=== PATIENT | male | born 1955 | race Caucasian/White ===

== ENCOUNTER 2019-01-26 10:09 | Inpatient (IN) | payer OTHER ==
[~2019-01-26] VITALS: Ht 185.4 cm; Wt 123.4 kg
--- NOTE | ~2019-01-26 | HC ---
[facility] [place] [address] CONSULTATION Name: LOU LEO Room #: 355-P ADM IN M.R.#: [id number] Admission: 01/26/19 ������������������ Attend Phys: Dave Douglass MD Discharge: ������������������ Date of : 55 Report #: [id number] THIS REPORT FOR: //name// CC: Dave Harden TYPE OF REPORT: Neurology consultation. HISTORY OF PRESENT ILLNESS: The majority of the history is obtained from the patient's who was an excellent historian and the records from [facility]. The patient was admitted for a recent fall. He seemed to get a wild-eyed looked and then slumped over. He came to the Emergency Room. The patient has a complicated and extensive past medical history. The records, particularly, the summary from the admission date of 12/11/2018 go into great detail about the patient's past medical history. The patient has been walking with a cane for over 10 years. In late 2015, he began losing balance. He does have a known history of peripheral neuropathy. At that time, he could only walk 20 or 30 feet. The patient's states that she noticed in August, he seemed to have more difficulty with word finding. On 11/19/2018, the patient was admitted to [facility] where he had a left middle cerebral artery stroke. His told me that he was diagnosed with vasculitis but reviewing the records, he was only treated with high dose steroids and a prednisone taper as a precautionary measure. The patient also had a brain biopsy because of his prior history of lymphoma diagnosed in 2017. The patient was discharged from , his began to notice these episodes where he seems as though he is not there. On 12/11/2018, he was again taken back to where the left middle cerebral artery stent was placed. The patient refused rehab and went home on 12/29/2018. Since then, the patient has fallen or collapsed at least 4 times. His had tried to get him placed at [facility] [place] but there were no rooms available. They are now trying to get him placed at [facility]. The patient's states that he just cannot care for him at home. PAST MEDICAL HISTORY: B-cell lymphoma, bipolar disorder, deep vein thrombosis, bilateral aneurysms of the popliteal fossa, degenerative joint disease, diabetes mellitus, gastroesophageal reflux, hyperlipidemia, hypertension, renal failure, stroke and diabetic neuropathy. PAST SURGICAL HISTORY: Hernia repair, popliteal artery vein graft, bilateral popliteal artery aneurysm repair, left toe amputation, brain biopsy and left middle artery stent. MEDICATIONS: Amitriptyline 50 mg at bedtime, aspirin 325 mg daily, atorvastatin [address] [address] CONSULTATION Name: ALIYAHLOU KAUR Room #: 355-P [facility] IN M.R.#: [id number] Admission: 01/26/19 ������������������ Attend Phys: Dave Douglass MD Discharge: ������������������ Date of : 55 Report #: [id number] 80 mg daily, Plavix 75 mg daily, duloxetine 60 mg b.i.d., Flomax 0.4 mg daily, gabapentin 600 mg t.i.d., metoprolol 25 mg daily, pantoprazole 40 mg daily, ropinirole 0.5 mg at dinner and Xanax 0.25 mg t.i.d. p.r.n. anxiety. PHYSICAL EXAMINATION: VITAL SIGNS: Temperature 36.3, pulse rate 80, respiratory rate 16, blood pressure 111/84 and bedside pulse oximetry 94% on room air. NEUROLOGICAL: The patient is able to carry on a conversation, but has limited speech and also has dysarthria. It is difficult for him to make himself understood. He has symmetrical movement of all four extremities. Reflexes were absent. Plantar responses were mute. I did not check for dysmetria and could not test for gait. LABORATORY DATA: Hematology: White blood cell count 5.6; hemoglobin 12.1; hematocrit 36.5 and platelet count 175,000. Urinalysis 2+ protein, trace ketones, 1+ blood, nitrite positive and 2+ leukocyte esterase positive. Chemistry: Sodium 141, potassium 3.6, chloride 106, carbon dioxide 23, BUN 17, creatinine 1.8, GFR is 38 and glucose 198. B12 of 469. RADIOLOGICAL DATA: CT scan of the head demonstrates no acute intracranial process, left posterior parietal craniotomy is seen, encephalomalacia in the left MCA distribution is seen. Small stent within the region of the left MCA. IMPRESSION AND PLAN: This patient has an old left middle cerebral artery stroke. Reviewing his records from , the patient did not have vasculitis, although he was treated for it to see if this might improve his symptoms, which it did not. The patient also has significant vascular disease. This includes the intracranial circulation. I have ordered an MRI head without contrast to look for an acute stroke. The patient also probably has a significant diabetic peripheral neuropathy. Something that might be considered in the future would be an EMG as an outpatient to make sure there is not a component of demyelinating disease. For the staring off episodes, an electroencephalogram has been ordered. Dr. Valiente will be following the patient as of Monday. ��������������������������������������������� ���������������������������������������� By: ��������������������������������������������� 1127 0534 Suzanne Welch DO /nt
--- NOTE | ~2019-01-26 | EEG ---
[facility] [place] [address] ELECTROENCEPHALOGRAM Name: LOU LEO Room #: 355-P ADM IN M.R.#: [id number] ������������������ Admission: 01/26/19 ������������������ Attend Phys: Dave Douglass MD Discharge: ������������������ Date of : 55 Report #: [id number] ����������������������������������������������������������������� [id number] THIS REPORT FOR: //name// CC: Dave Douglass [facility] DATE OF SERVICE: 01/27/2019 This patient is being evaluated for the possibility of TIA. Background activity in this patient's EEG is about 8-9 Hz and 30 microvolt. The patient became drowsy that was associated with bilateral slowing. Some slowing is present on the left side. That may be because of a prior CVA. Photic stimulation is unremarkable. Throughout the record, no active epileptiform activity was noticed. IMPRESSION: This patient's EEG is intermixed with theta range slowing on both sides. That is a nonspecific abnormality, which can occur with dementia, encephalopathy, effect of psychotropic medication. No active epileptiform activity was noticed during this record. ���������������������������������������� ���������������������������������������� By: ��������������������������������������������� 1638 54 Jung Valiente MD /nt
[2019-01-26 10:10] VITALS: BP 140/93
[2019-01-26 10:34] LABS: ABSOLUTE NEUTROPHILS 3.7 thou/uL (1.4-8.2); BASOPHILS 1.4 % (0.0-2.0); EOSINOPHILS 1.8 % (0.0-3.0); HEMATOCRIT 37.7 % (42.0-52.0); HEMOGLOBIN 12.5 gm/dL (14.0-18.0); LYMPHOCYTES 27.2 % (24.0-44.0); MCH 28.6 pg (26.0-34.0); MCHC 33.2 g/dL (28.0-37.0); MCV 86.3 fL (80.0-100.0); MONOCYTES 8.9 % (1.0-8.0); PLATELET COUNT 178 thou/uL (150-400); POLYS 60.7 % (36.0-66.0); RBC 4.37 mil/uL (4.50-6.00); RDW 17.3 % (10.5-14.5); WBC 6.1 thou/uL (4.0-11.0)
[2019-01-26 10:41] LABS: ANION GAP 12 mmol/L (7-16); BUN 16 mg/dL (7-18); CALCIUM 9.1 mg/dL (8.5-10.1); CHLORIDE 103 mmol/L (98-107); CO2 25 mmol/L (21-32); CREATININE 1.4 mg/dL (0.7-1.3); GLUCOSE 240 mg/dL (74-106); POTASSIUM 3.6 mmol/L (3.5-5.1); SODIUM 140 mmol/L (136-145)
[2019-01-26 10:47] LABS: APTT 28.9 Seconds (24.5-32.8)
[2019-01-26 10:51] LABS: ALBUMIN 3.4 g/dL (3.4-5.0); DIRECT BILIRUBIN 0.2 mg/dL (<0.1-0.3); SGOT 18 U/L (15-37); SGPT 32 U/L (30-65); TOTAL BILIRUBIN 0.7 mg/dL (<0.1-1.0); TROPONIN-I <0.06 ng/mL (<0.06)
[2019-01-26 11:41] LABS: URINE BILIRUBIN NEGATIVE (Negative); URINE BLOOD 1+ (Negative); URINE COLOR YELLOW; URINE GLUCOSE-RANDOM* TRACE (Negative); URINE KETONES TRACE (Negative); URINE PROTEIN (DIPSTICK) 2+ (Negative); URINE SPECIFIC GRAVITY >= 1.030 (1.005-1.035); URINE UROBILINOGEN 0.2 E.U./dl (0.2-1.0)
[2019-01-26 11:44] LABS: URINE CLARITY HAZY; URINE LEUKOCYTES-REFLEX 2+ (Negative); URINE NITRITE-REFLEX POSITIVE (Negative)
[2019-01-26 11:48] LABS: BACTERIA-REFLEX >30 Many /HPF (None Seen); CASTS None Seen /LPF (None Seen); SQUAMOUS None Seen /LPF (0-3); URINE WBC-REFLEX >25 Many /HPF (0-5)
[2019-01-26 11:49] LABS: CRYSTALS None Seen /LPF (None Seen)
[2019-01-26 13:20] VITALS: BP 145/91
[2019-01-26 13:40] VITALS: BP 157/97
[2019-01-26 13:55] VITALS: BP 159/119
[2019-01-26 14:07] LABS: TSH 3.222 uIU/mL (0.358-3.740)
--- NOTE | 2019-01-26 15:48 | EKG ---
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 : 1955 Requested By: Nanci Holt Order Number: [id number] MD: Saulo Wilson Measurements Intervals [place] Rate: 94 P: 14 MD: 184 QRS: 2 QRSD: 85 T: 198 QT: 326 QTc: 408 Interpretive Statements Sinus rhythm Nonspecific T abnormalities, lateral leads Compared to ECG 07/09/2003 14:50:25 T-wave abnormality now present Electronically Signed On 01-26-2019 15:47:45 CDT by Saulo Wilson [email or web address] ��������������������������������������������� <ELECTRONICALLY SIGNED> ���������������������������������������� By: Saulo Wilson MD ��������������������������������������������� 01/26/19 1547 1022 1022 Saulo Wilson MD /[facility]
[2019-01-26 15:53] VITALS: BP 179/99
[2019-01-26] MEDS ORDERED: OXYCODONE HCL10 MG PO (15:55)
[2019-01-26] MEDS ORDERED: PROTONIX40 M1 PO (15:55)
[2019-01-26] MEDS ORDERED: FLOMAX0.4 MG PO (15:56)
[2019-01-26] MEDS ORDERED: REQUIP0.5 MG PO (15:56)
[2019-01-26] MEDS ORDERED: B COMPLEX1 EACH PO (15:56)
[2019-01-26] MEDS ORDERED: ASPIRIN325 PO (15:57)
[2019-01-26] MEDS ORDERED: LIPITOR80 MG PO (15:57)
[2019-01-26] MEDS ORDERED: AMITRIPTYLINE H25 M2 PO (15:57)
[2019-01-26] MEDS ORDERED: CALCIUM MAGNES1 EACH PO (15:58)
[2019-01-26] MEDS ORDERED: PLAVIX 75 MG TA75 M1 PO (15:58)
[2019-01-26] MEDS ORDERED: CYMBALTA60 MG PO (15:58)
[2019-01-26] MEDS ORDERED: NOVOLOG100 UNIT/1 SUBQ (15:59)
[2019-01-26] MEDS ORDERED: NEURONTIN600 MG PO (15:59)
[2019-01-26] MEDS ORDERED: TOPROL XL25 MG PO (16:00)
[2019-01-26] MEDS ORDERED: LEVEMIR SUBQ (16:00)
[2019-01-26] MEDS ORDERED: MELATONIN3 MG PO (16:00)
[2019-01-26] MEDS ORDERED: XANAX 0.25 MG0.25 MG PO (16:15)
--- NOTE | 2019-01-26 18:24 | NUR ---
Assumed care of Pt on arrival to unit at approx 1400. pt aphasic, in no acute distress. accompanied by and son. speech therapy rec honey thickened fluids. iv abx infusing per order. pt expressing frustration about being in hospital again - says he has been in hospital a lot this year. sinus on telemetry. hypertensive - physician notified - resumed home metoprolol. low dose anxiety meds ordered. good appetite. pt able to turn self in bed. bruising throughout from multiple recent falls - no breakdown noted. pt progressing toward poc goals.
[2019-01-26 19:45] VITALS: BP 105/65
--- NOTE | 2019-01-26 22:50 | NUR ---
PT IS HAVING PAIN IN HIS LEFT HIP TONIGHT. HE DID FALL AT HOME PRIOR TO COMING TO THE HOSPITAL. HE IS MAONING AND GRIMACING AND ON THE CALL RAZO TRYING TO EXPLAIN HIS DISCOMFORT. HE DENIES NEED FOR THE URINAL OR OTHER DISCOMFORTS. HE IS POINTING TO HIS HIP AND IS FUSSY.
[2019-01-27] VITALS: BP 138/73
[2019-01-27 04:00] VITALS: BP 144/86
[2019-01-27 04:24] LABS: HEMATOCRIT 36.5 % (42.0-52.0); HEMOGLOBIN 12.1 gm/dL (14.0-18.0); MCH 28.6 pg (26.0-34.0); MCV 86.6 fL (80.0-100.0); RBC 4.22 mil/uL (4.50-6.00); RDW 17.7 % (10.5-14.5); WBC 5.6 thou/uL (4.0-11.0)
[2019-01-27 04:53] LABS: CALCIUM 8.5 mg/dL (8.5-10.1); CREATININE 1.8 mg/dL (0.7-1.3); POTASSIUM 3.6 mmol/L (3.5-5.1); TOTAL BILIRUBIN 0.6 mg/dL (<0.1-1.0); TOTAL PROTEIN 6.3 g/dL (6.4-8.2)
--- NOTE | 2019-01-27 06:09 | NUR ---
HAS HAD DIFFICULTY WITH RETENTION THIS SHIFT. 350 ML STRAIGHT CATHETER REMOVED FROM BLADDER. PT TOLERATED WITHOUT COMPLAINT HE IS MORE RELAXED NOW.
[2019-01-27 07:41] VITALS: BP 111/84
[2019-01-27 11:20] VITALS: BP 108/57
[2019-01-27 16:39] VITALS: BP 143/94
[2019-01-27 19:55] VITALS: BP 141/83
--- NOTE | 2019-01-27 20:06 | NUR ---
FALL PREC IN PLACE... REPORTS PATIENT SLUMPED TO GROUND YESTERDAY AT HOME..WILL AWAIT PT TO HELP GET PATIENT OUT OF BED TOMORROW.
--- NOTE | 2019-01-28 02:09 | NUR ---
PATIENT IS ALERT AND ORIENTED. PATIENT HAS EXPRESSIVE APHASIA. PATIENT IS 2 MAX ASSIST TO BSC. PATIENT IS ON ROOM AIR. PATIENT DISLIKES THICKENED FLUIDS SO PATIENT IS NOT DRINKING MUCH. NURSE AND STAFF ENCOURAGE ORAL INTAKE. PATIENTS NIH HAS BEEN 3 DUE TO CHRONIC APHASIC CHANGES. PATIENT HAD A BATH PER DAY SHIFT. PATIENT IS PENDING MRI TODAY. PATIENT IS PENDING PLACEMENT. SPOUSE IS UNABLE TO CARE FOR PATIENT AT HOME (PER SPOUSE). PATIENT IS RESTING COMFORTABLY. PATIENT HAS NOT VOIDED THIS SHIFT. SCADDED 175 IN BLADDER WCM. PATIENT IS NOT PROGRESSING TO GOALS
[2019-01-28 04:09] VITALS: BP 1142/79
[2019-01-28 07:15] VITALS: BP 143/88
[2019-01-28 11:02] VITALS: BP 171/98
--- NOTE | 2019-01-28 11:06 | NUR ---
[employer] sent initial SNF referral to [facility] fax [phone]. Not sure of dc timeframe yet, possibly 1-2 days. Will need insurance authorization, didn't request auth with facility yet. DP will call to make certain JKV received faxed referral.
--- NOTE | 2019-01-28 12:15 | 2DMMODE ---
[facility] [place] [employer] [place] [address] 2 D/M-MODE ECHOCARDIOGRAM Name: ALIYAHVINCENTLOU FRANCESCO Room #: 355-P ADM IN M.R.#: [id number] ������������� Admission: 01/26/19 ������������� Attend Phys: Gavin Tran Discharge: ��� ������������� ��� Date of : 55 Date of Service: 01/28/19 1214 �� Report #: [id number] �������� ��������������������������������������������[id number] THIS REPORT FOR: //name// APPROVED REPORT Study performed: 01/28/2019 10:12:35 EXAM: Comprehensive 2D, Doppler, and color-flow Echocardiogram Patient Location: Bedside Room #: 355 Status: routine BSA: 2.43 HR: 72 bpm BP: 143/88 mmHg Rhythm: NSR Other Information Study Quality: Adequate Indications TIA, Afib. hx: COPD, AFIB, HTN Echo Enhancing Agent Indication: Rule out Shunt Agent(s) / Amount(s) Used: Agitated Saline 6 cc 2D Dimensions RVDd: 43.05 mm IVSd: 12.99 (7-11mm) LVOT Diam: 24.27 (18-24mm) LVDd: 46.40 mm PWd: 12.00 (7-11mm) Ascending Ao: 42.17 (22-36mm) LVDs: 36.01 (25-40mm) Aortic Root: 40.09 mm Volumes Left Atrial Volume (Systole) Single Plane 4CH: 25.90 mL Single Plane 2CH: 47.09 mL LA ESV Index: 16.00 mL/m2 Aortic Valve AoV Peak Greg.: 0.91 m/s AO Peak Gr.: 3.33 mmHg LVOT Max P.87 mmHg LVOT Max V: 0.85 m/s RITU Vmax: 4.29 cm2 [facility] [address] [place] [address] 2 D/M-MODE ECHOCARDIOGRAM Name: ALIYAHVINCENTLOU FRANCESCO Room #: 355-[facility] IN ..#: [id number] ������������� Admission: 01/26/19 ������������� Attend Phys: Gavin Tran Discharge: ��� ������������� ��� Date of : 55 Date of Service: 01/28/19 1214 �� Report #: [id number] �������� ��������������������������������������������[id number] Mitral Valve E/A Ratio: 0.7 MV Decel. Time: 187.92 ms MV E Max Greg.: 0.55 m/s MV A Greg.: 0.81 m/s MV PHT: 54.50 ms IVRT: 134.95 ms Pulmonary Valve PV Peak Greg.: 0.67 m/s PV Peak Gr.: 1.81 mmHg Tricuspid Valve TR Peak Greg.: 1.88 m/s TR Peak Gr.: 14.08 mmHg Left Ventricle The left ventricle is normal size. Mild concentric left ventricular hypertrophy. Left ventricular systolic function is low normal. LVEF is 50%. Mild diastolic dysfunction is present (impaired relaxation pattern). Right Ventricle The right ventricle is normal size. The right ventricular systolic function is normal. Atria The left atrium size is normal. No shunting noted by contrast bubble injection. The right atrium size is normal. Aortic Valve Aortic valve is trileaflet, mildly thickened. No aortic regurgitation is present. There is no aortic valvular stenosis. Mitral Valve The mitral valve is normal in structure. Mild mitral regurgitation. Tricuspid Valve The tricuspid valve is normal in structure. Trace tricuspid regurgitation. Estimated PAP is 15mmHg plus the right atrial pressure. Pulmonic Valve The pulmonary valve is normal in structure. Mild pulmonic regurgitation. [facility] [address] [place] [address] 2 D/M-MODE ECHOCARDIOGRAM Name: LOU LEO FRANCESCO Room #: 355-P ADM IN M.R.#: [id number] ������������� Admission: 01/26/19 ������������� Attend Phys: Gavin Tran Discharge: ��� ������������� ��� Date of : 55 Date of Service: 01/28/19 1214 �� Report #: [id number] �������� ��������������������������������������������[id number] [employer] Aortic root is mildly dilated. The ascending aorta is mildly dilated. The inferior vena cava is not well visualized. Pericardium There is no pericardial effusion. <Conclusion> The left ventricle is normal size. LVEF is 50%. Aortic valve is trileaflet, mildly thickened. The mitral valve is normal in structure. Mild mitral regurgitation. The tricuspid valve is normal in structure. Trace tricuspid regurgitation. Estimated PAP is 15mmHg plus the right atrial pressure. The pulmonary valve is normal in structure. Mild pulmonic regurgitation. Aortic root is mildly dilated. The ascending aorta is mildly dilated. There is no pericardial effusion. ��������������������������������������������� <ELECTRONICALLY SIGNED> ���������������������������������������� By: Deondre Reed MD ��������������������������������������������� 01/28/19 1214 1214 1214 Deondre Reed MD /INF
--- NOTE | 2019-01-28 12:38 | HC ---
[facility] [place] [address] CONSULTATION Name: LOU LEO Room #: 355-P ADM IN M.R.#: [id number] Admission: 01/26/19 ������������������ Attend Phys: Dave Douglass MD Discharge: ������������������ Date of : 55 Report #: [id number] THIS REPORT FOR: //name// CC: Dave Mckinnonwster DATE OF SERVICE: 01/26/2019 REASON FOR CONSULTATION: I was asked to evaluate concerning syncopal episode with pneumonia, urinary tract infection. HISTORY OF PRESENT ILLNESS: The patient was a 63-year-old who presented with a syncopal episode witnessed by his . The patient was ambulating with his walker out of the restroom when he slumped over to his right side and fell to the floor. No specific trauma identified. He actually did not lose consciousness, although he was confused. Episode lasted about 15 minutes. There was no generalized seizure activity. The patient was brought into the Emergency Room for further evaluation. He has had no fever, chills or sweats. Overall, the patient states he feels well. He has had no cough or sputum production. No nausea, vomiting or diarrhea. No dysuria or frequency. He denies any rash or ulcerations. No adenopathy. I had a stroke approximately one month ago at [facility]. Prior to this, he had a brain biopsy in October with left-sided stent placement. Since then, he has had several falls. He did have one episode of gross hematuria, which has cleared. REVIEW OF SYSTEMS: A 10-point review of systems is negative other than what is described above. ALLERGIES: DEMEROL. MEDICATIONS: As noted on his MAR, which were reviewed. PAST MEDICAL HISTORY: Peripheral vascular disease with bypass in 2002, right lower extremity, hypertension, obesity, COPD, cerebrovascular disease, nonsmoker, nonsmoker, no significant alcohol intake. FAMILY HISTORY: Noncontributory. SOCIAL HISTORY: As noted. PHYSICAL EXAMINATION: VITAL SIGNS: He is afebrile and hemodynamically stable. He is alert and cooperative. His speech was slow. SKIN: With several excoriations to his lower legs. No palpable adenopathy. [facility] [address] [place] [address] CONSULTATION Name: LOU LEO FRANCESCO Room #: 355-P [facility] IN M.R.#: [id number] Admission: 01/26/19 ������������������ Attend Phys: Dave Douglass MD Discharge: ������������������ Date of : 55 Report #: [id number] EYES: Without scleral icterus. MOUTH: Without mucositis. NECK: Supple, with no thyromegaly or mass. LUNGS: Few crackles in the left base posteriorly. No consolidation. HEART: Regular, without murmur, gallop or rub. ABDOMEN: Soft and nontender with no hepatosplenomegaly or mass. GENITOURINARY: External genitalia unremarkable with no masses or lesions. RECTAL: Not performed. EXTREMITIES: With no clubbing, cyanosis or edema. Cranial nerves intact. Strength in the upper and lower extremities was symmetric with no focal deficits. Sensation intact. Mood normal. LABORATORY STUDIES: Reviewed, noting creatinine 1.8. Liver function test normal. Hemoglobin 12, WBC 6. Chest x-ray, left basilar infiltrate. Blood cultures negative. CT of the head postoperative change. IMPRESSION: 1. Possible aspiration pneumonia, left lower lobe. 2. Cystitis. 3. Left MCA stroke, status post left MCA stenosis with stent placement. 4. Possible seizure versus ischemic event post-craniotomy. 5. Recent gross hematuria. RECOMMENDATION: We will continue with azithromycin and Zosyn. Obtain blood, urine and sputum cultures. Urine antigens. Screen for MRSA. Serial chest x-rays and continue with aspiration precautions. ��������������������������������������������� <ELECTRONICALLY SIGNED> ���������������������������������������� By: Kenn Wallace MD ��������������������������������������������� 01/28/19 1238 1503 0940 Kenn Wallace MD /nt
--- NOTE | 2019-01-28 14:42 | NUR ---
INITIAL ASSESSMENT: Received consult for discharge planning. SW reviewed chart and spoke with nursing and attending physician. Pt was admitted from home due to TIA/HCAP/UTI. Pt is on IV abx at this time. Pt with hx of TIA/CVA. RHONDA met with pt and at bedside. Introduced role of SW. Pt is alert/orientatedx 4. Pt is able to make his needs known. Pt with speech deficits from previous CVA. Pt and live at home. Prior to admission, pt was using a rollator walker. SW discussed discharge needs. Pt's states they have been trying to place pt at [facility] for awhile. Pt and request referral to be sent to [facility] for review. SW explained that insurance will need to provide authorization. senior media planner to send referral. Awaiting therapy evals at this time. RHONDA is following to assist as needed with discharge planning.
[2019-01-28 15:25] VITALS: BP 110/67
--- NOTE | 2019-01-28 18:29 | NUR ---
PT IS AWAITING AUTHORIZATION FROM [employer] AND REQUESTS [facility] CONSULT WHICH WAS OBTAINED AND CALLED THIS TOSHIA...
[2019-01-28 20:25] VITALS: BP 116/63
[2019-01-29 04:00] VITALS: BP 110/61
[2019-01-29 05:58] LABS: CALCIUM 8.5 mg/dL (8.5-10.1); CREATININE 2.2 mg/dL (0.7-1.3); POTASSIUM 3.9 mmol/L (3.5-5.1)
[2019-01-29 07:28] VITALS: BP 167/92
--- NOTE | 2019-01-29 07:51 | NUR ---
PATIENT IS ALERT AND ORIENTED. PATIENT HAS SOME EXPRESSIVE APHASIA. SPEECH HAS IMPROVED. PATIENT IS UP TIMES 2 WITH GAITBELT AND WALKER. PATIENT IS NECTAR THICK LIQUIDS. PATIENTS HAD LOW OUTPUT WITH MARIE. NS STARTED AT 100ML/HR. PATIENTS LBM WAS THE 5TH. PATIENT IS ACHS ACCUCHECKS. PATIENTS NIH HAS BEEN NEGATIVE EXCEPT FOR APHASIA WHICH IS CHRONIC. PATIENT IS PENDING PLACEMENT. PATIENT DENIES PAIN. PATIENT IS RESTING COMFORTABLY IN BED. WCM.
--- NOTE | 2019-01-29 11:48 | NUR ---
dp faxed therapy evaluations to [facility] (yesterdays 01/28 both OT and PT).
[2019-01-29 12:29] VITALS: BP 176/104
--- NOTE | 2019-01-29 14:06 | NUR ---
PATIENT SEEN BY JO WELDON NP WITH DR. RANDALL, FOR CONSULT. PATIENT IS OUT OF NETWORK WITH [facility]. FAMILY NOT INTERESTED IN ACUTE REHAB. HAS GONE TO SEE [facility] AND REQUESTS THIS LOCATION FOR PATIENT AT DISCHARGE. ELECTRONIC PUBLICATIONS SPECIALIST INFORMED. THANK YOU FOR THIS REFERRAL.
--- NOTE | 2019-01-29 15:26 | NUR ---
ASSUMED CARE AT 0700, SHIFT ASSESSMENT DONE, VSS THIS AM. MEDS GIVEN WITH APPLESAUCE. PATIENT SLEEPY THIS AM, SKIPPED BREAKFAST. AT 1100, CALLED AND REPORTED OF PATIENT EXPERIENCING CHEST PAIN. VS WAS TAKEN, BP ELEVATED AT 194/107 AND CAME DOWN 176/104. CHEST PAIN RESOLVED WITHIN 5 MINUTES AFTER PATIENT WAS REPOSITIONED AND SAT UP IN BED, HR WAS BETWEEN 70-85, BUT BP REMAINED ELEVATED. DR WEISS WAS INFORMED, ORDER RECEIVED FOR HYDRALAZINE, GIVEN. REPROTED LEG PAIN AND ANXIETY, PRN XANAX AND PAIN MED GIVEN WITH PARTIAL RELIEF. STARTED FILLING BETTER BY 1300. WENT FOR VIDEO SWALLOW, WILL BE ON HONEY THICK AND MECHANICALLY CHOPPED DIET. WORKED WITH PHYSICAL THERAPHY, SITTING IN THE CHAIR THIS AFTERNOON. MARIE IN PLACE. WILL CONTINUE TO ASSESS AND ASSIST WITH ADLs NEEDED.
[2019-01-29 15:29] VITALS: BP 135/79
--- NOTE | 2019-01-29 15:33 | NUR ---
RHONDA reviewed chart and spoke with nursing and attending physician. [facility] is able to accept pt from a clinical standpoint. Will need insurance authorization. Awaiting additional therapy notes to submit to insurance. RHONDA met with pt and at bedside to provide update. Both are aware and in agreement with plan for pt to go to [facility] pending insurance authorization. RHONDA was notified by [facility] rehab tech, that pt's insurance is out of network with [facility]. RHONDA was unaware of [facility] consult. RHONDA is following to assist as needed with discharge planning.
--- NOTE | 2019-01-29 16:14 | EKG ---
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: Gavin MCNEILL : 1955 Requested By: Ginger Ingram Order Number: [id number] MD: Saulo Wilson Measurements Intervals [place] Rate: 81 P: 23 IA: 181 QRS: 8 QRSD: 92 T: 47 QT: 438 QTc: 460 Interpretive Statements Sinus rhythm Compared to ECG 01/26/2019 10:22:19 T-wave abnormality no longer present Electronically Signed On 01-29-2019 16:13:52 CDT by Saulo Wilson [email or web address] ��������������������������������������������� <ELECTRONICALLY SIGNED> ���������������������������������������� By: Saulo Wilson MD ��������������������������������������������� 01/29/19 1613 1602 160 Saulo Wilson MD /LISBETH
[2019-01-29 19:20] VITALS: BP 153/82
--- NOTE | 2019-01-30 04:06 | NUR ---
Pt. requested pain med , hurts all over with good relief. He slept well during the night. Expressive aphasia and right sided weakness from previous CVA. Able to turn self from side to side. Meds given with applesauce and honeythick liquids which he tolerated well. No coughing after taking meds.Bed alrm and SCD's on. Pt. is continuing to work towards care plan goals.
[2019-01-30 04:51] VITALS: BP 156/91
[2019-01-30 05:40] LABS: ALBUMIN 2.9 g/dL (3.4-5.0); CALCIUM 8.2 mg/dL (8.5-10.1); CREATININE 1.7 mg/dL (0.7-1.3); PHOSPHORUS 3.9 mg/dL (2.5-4.9); POTASSIUM 3.7 mmol/L (3.5-5.1)
[2019-01-30 07:30] VITALS: BP 197/108
[2019-01-30] MEDS ORDERED: AUGMENTIN 875-1 EACH PO (09:33)
[2019-01-30] MEDS ORDERED: METOPROLOL SUCC25 M1 PO (09:34)
[2019-01-30] MEDS ORDERED: OXYCODONE HCL 55 MG PO (09:34)
[2019-01-30] MEDS ORDERED: FINASTERIDE5 MG PO (09:35)
[2019-01-30] MEDS ORDERED: NOVOLOG100 UNIT/1 SUBQ (09:35)
--- NOTE | 2019-01-30 10:58 | NUR ---
ASSUMED CARE THIS AM, SHIFT ASSESSMENT DONE, MEDS GIVEN. BP ELEVATED THIS AM. PRN HYDRALAZINE GIVEN. DR WEISS AWARE. ADDED AMLODIPINE, ADMINISTERED. SITING UP IN THE CHAIR THIS AM. DENIES ANY PAIN, NAUSEA, VOMITING. ACHS, INSULIN GIVEN PER ORDER. WILL CONTINUE TO ASSESS AND ASSIST WITH ADLs NEEDED.
[2019-01-30 11:04] VITALS: BP 154/72
--- NOTE | 2019-01-30 12:36 | NUR ---
DISCHARGE PLANNING. [facility] RECOMMENDED AT DISCHARGE. [facility] HAS ACCEPTED PATIENT CLINICALLY. INSURANCE AUTHORIZATION IS STILL PENDING. PATIENT PROVIDER WILL NOT ACCEPT INSURANCE AUTH PROCESS DUE TO PATIENTS COMPLAINTS OF CHEST PAIN AND LACK OF DOCUMENTATION ON OT ASSESSMENT. PT ASSESSMENT FROM 01/29 FAXED TO [facility], OT ASSESSMENT NOT AVABILABLE FOR 01/29. PT AND OT TO SEE PATIENT LATER THIS AFTERNOON. WILL FORWARD TO [facility] ONCE THEY BECOME AVAILABLE. UNIT CM/SW AWARE.
--- NOTE | 2019-01-30 14:25 | NUR ---
SW reviewed chart and spoke with nursing and attending physician. Pt has discharge orders to go to SNF today. Awaiting additional therapy notes to send to [facility] for insurance authorization. Pt was not feeling well earlier today and was unable to work with therapy. SW updated pt's , via phone. When insurance authorization is obtained, w/c van transportation will be coordinated with [facility]. Chart copy ordered. RHONDA is following to assist as needed with discharge planning.
[2019-01-30 15:01] VITALS: BP 122/77
[2019-01-30 20:20] VITALS: BP 147/93
[2019-01-31 04:10] VITALS: BP 151/92
--- NOTE | 2019-01-31 04:16 | NUR ---
Pt. up in the chair at shift change. Family member visited with pt. Medicated for generalized pain and leg pain with good relief.Son stated pt. has restless leg.Xanax also given for anxiety with good results. He slept well during the night. Able to turn self from side to side. Assisted to repositioned prn for comfort. No change in neuro status. Bed alarm on and SCD's in place. Making progress towards care plan goals.
[2019-01-31 07:20] VITALS: BP 169/97
[2019-01-31 11:45] VITALS: BP 136/81
--- NOTE | 2019-01-31 14:19 | NUR ---
DISCHARGE NOTE: SW reviewed chart and spoke with nursing and attending physician. Pt is medically stable for discharge to [facility] today. Insurance authorization obtained. 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 SW met with pt's to provide update. Pt's to go home and get clothes for pt prior to discharge. assortment planner coordinated and faxed discharge orders/summary. Nursing to call report. CHart copy ordered. No additional SW needs identified at this time, but is available to assist should needs arise.
--- NOTE | 2019-01-31 14:43 | NUR ---
PT IS A&0X4, DIFFICULT TO COMPREHEND SPEECH D/T TIA AND NO TEETH IN (THEY ARE AT HOME), UNABLE TO AMBULATE UNLESS TWO ASSIST AND WALKER. NO BM REPORTED, PHYSICIAN AWARE AND ORDERED MED, ADMINISTERED. 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 PT HAD BM PER REPORT ON THE 5TH OR 6TH. PT'S SPOUSE HELPING WITH CLOTHING, AIDE REMOVING IV AND MARIE CATH REPORT ATTEMPTED W/KIM AND SHE STATED SHE'D RETURN MY CALL EVEN WITH FACT RIDE WAS DUE AT 15:00
== END 2019-01-31 15:51 | DRG 689 ==
LOC: ER 10:09 → EROBS 12:22 → 3W 12:22
PROVIDERS: Emergency Medicine; Hospitalist; Nurse Practitioner Family; ADMIT Family Medicine
DX: N30.90 Cystitis, unspecified without hematuria (principal); J18.9 Pneumonia, unspecified organism; G45.9 Transient cerebral ischemic attack, unspecified; G93.49 Other encephalopathy; I10 Essential (primary) hypertension; E66.9 Obesity, unspecified; J44.9 Chronic obstructive pulmonary disease, unspecified; F31.9 Bipolar disorder, unspecified; M19.90 Unspecified osteoarthritis, unspecified site; E11.51 Type 2 diabetes mellitus with diabetic peripheral angiopathy without gangrene; K21.9 Gastro-esophageal reflux disease without esophagitis; E78.5 Hyperlipidemia, unspecified; E11.40 Type 2 diabetes mellitus with diabetic neuropathy, unspecified; E11.65 Type 2 diabetes mellitus with hyperglycemia; I48.0 Paroxysmal atrial fibrillation; R13.10 Dysphagia, unspecified; E55.9 Vitamin D deficiency, unspecified; I66.02 Occlusion and stenosis of left middle cerebral artery; B96.20 Unspecified Escherichia coli [E. coli] as the cause of diseases classified elsewhere; N40.1 Benign prostatic hyperplasia with lower urinary tract symptoms; R33.8 Other retention of urine; Z79.82 Long term (current) use of aspirin; I69.90 Unspecified sequelae of unspecified cerebrovascular disease; Z68.35 Body mass index [BMI] 35.0-35.9, adult; Z89.422 Acquired absence of other left toe(s); Z86.718 Personal history of other venous thrombosis and embolism; Z88.8 Allergy status to other drugs, medicaments and biological substances; Z79.4 Long term (current) use of insulin; Z79.899 Other long term (current) drug therapy
CPT/HCPCS: 10779; 10879

== ENCOUNTER 2020-01-03 21:37 | Emergency (ER) | payer OTHER ==
[~2020-01-03] VITALS: Ht 182.9 cm; Wt 133.5 kg
[~2020-01-03 21:37] MED LIST: AMITRIPTYLINE H25 M2 PO; ASPIRIN325 PO; AUGMENTIN 875-1 EACH PO; B COMPLEX1 EACH PO; CALCIUM MAGNES1 EACH PO; CYMBALTA60 MG PO; FINASTERIDE5 MG PO; FLOMAX0.4 MG PO; LEVEMIR SUBQ; LIPITOR80 MG PO; MELATONIN3 MG PO; METOPROLOL SUCC25 M1 PO; NEURONTIN600 MG PO; NOVOLOG100 UNIT/1 SUBQ; OXYCODONE HCL 55 MG PO; OXYCODONE HCL10 MG PO; PLAVIX 75 MG TA75 M1 PO; PROTONIX40 M1 PO; REQUIP0.5 MG PO; TOPROL XL25 MG PO; XANAX 0.25 MG0.25 MG PO
[2020-01-03 22:42] LABS: ABSOLUTE NEUTROPHILS 5.5 thou/uL (1.4-8.2); BASOPHILS 0.5 % (0.0-2.0); EOSINOPHILS 0.2 % (0.0-3.0); HEMATOCRIT 46.1 % (42.0-52.0); HEMOGLOBIN 15.3 gm/dL (14.0-18.0); LYMPHOCYTES 11.2 % (24.0-44.0); MCH 29.4 pg (26.0-34.0); MCHC 33.3 g/dL (28.0-37.0); MCV 88.2 fL (80.0-100.0); MONOCYTES 5.1 % (1.0-8.0); PLATELET COUNT 178 thou/uL (150-400); RBC 5.22 mil/uL (4.50-6.00); RDW 14.1 % (10.5-14.5); WBC 6.7 thou/uL (4.0-11.0)
[2020-01-03 22:51] LABS: ANION GAP 14 mmol/L (7-16); BUN 19 mg/dL (7-18); CALCIUM 9.1 mg/dL (8.5-10.1); CHLORIDE 93 mmol/L (98-107); CO2 23 mmol/L (21-32); CREATININE 1.7 mg/dL (0.7-1.3); GLUCOSE 359 mg/dL (74-106); POTASSIUM 4.5 mmol/L (3.5-5.1); SODIUM 130 mmol/L (136-145)
[2020-01-03 23:00] LABS: ALBUMIN 3.4 g/dL (3.4-5.0); LIPASE 77 U/L (73-393); SGOT 32 U/L (15-37); SGPT 38 U/L (30-65); TOTAL BILIRUBIN 0.8 mg/dL (<0.1-1.0); TOTAL PROTEIN 7.5 g/dL (6.4-8.2); TROPONIN-I <0.06 ng/mL (<0.06)
[2020-01-03 23:07] LABS: URINE BILIRUBIN NEGATIVE (Negative); URINE BLOOD 2+ (Negative); URINE CLARITY CLEAR; URINE COLOR YELLOW; URINE GLUCOSE-RANDOM* 3+ (Negative); URINE KETONES 2+ (Negative); URINE LEUKOCYTES-REFLEX NEGATIVE (Negative); URINE NITRITE-REFLEX NEGATIVE (Negative); URINE PROTEIN (DIPSTICK) 3+ (Negative); URINE UROBILINOGEN 0.2 E.U./dl (0.2-1.0)
[2020-01-03] MEDS ORDERED: TOPROL XL25 MG PO (23:07)
[2020-01-03] MEDS ORDERED: PIOGLITAZONE30 MG PO (23:08)
[2020-01-03 23:16] LABS: CASTS None Seen /LPF (None Seen); CRYSTALS None Seen /LPF (None Seen); SQUAMOUS None Seen /LPF (0-3); URINE RBC 0-2 Rare /HPF (0-2)
[2020-01-03 23:17] LABS: BACTERIA-REFLEX 1-9 Few /HPF (None Seen); URINE WBC-REFLEX None Seen /HPF (0-5)
[2020-01-04] MEDS ORDERED: LEVEMIR FL100 UNIT/2 SUBQ (00:36)
[2020-01-04] MEDS ORDERED: GLYBURIDE 5 MG T5 M1 PO (00:36)
[2020-01-04] MEDS ORDERED: DIAZEPAM2 MG PO (00:37)
[2020-01-04 00:56] VITALS: BP 180/102
--- NOTE | 2020-01-05 13:03 | EKG ---
[facility] [place] [address] ELECTROCARDIOGRAM REPORT Name: LOU LEO Room #: DEP [facility]#: [id number] Admission: 01/03/20 Attend Phys: Discharge: 01/04/20 Date of : 55 Report #: [id number] THIS REPORT FOR: cc: Cooper Harden MD, Samuel D. MD Couchonnal, Luis F. 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
== END 2020-01-04 01:05 | disposition home or self-care (01) ==
LOC: ER 21:37
PROVIDERS: Emergency Medicine
DX: R10.9 Unspecified abdominal pain (principal); R11.2 Nausea with vomiting, unspecified; R47.81 Slurred speech; J44.9 Chronic obstructive pulmonary disease, unspecified; K21.9 Gastro-esophageal reflux disease without esophagitis; I10 Essential (primary) hypertension; E11.9 Type 2 diabetes mellitus without complications; E78.5 Hyperlipidemia, unspecified; I48.91 Unspecified atrial fibrillation; Z79.899 Other long term (current) drug therapy; Z79.82 Long term (current) use of aspirin; Z79.4 Long term (current) use of insulin; Z86.718 Personal history of other venous thrombosis and embolism